=== PATIENT | female | born 1940 | race Two or more races ===

== ENCOUNTER 2018-06-29 06:38 | Inpatient (IN) | payer OTHER ==
--- NOTE | 2018-06-29 07:14 | PDOC ---
History of Present Illness <GrahamSebas - Last Filed: 06/29/18 09:38> - History of Present Illness Initial Comments: The pt is an 78F w/ a history of a-fib, HTN, previous CVA w/ residual BLE decreased sensation to light touch (R>L) and L upper face hemiparesis who presents for evaluation for concern of new stroke. The pt went to sleep last night at 2030 and woke at 0300 today w/ BLE weakness and slurring of speech as well as subjective difficulty of forming/finding words. Pt endorses fall x2 this AM 2/2 weakness. Denies hitting her head or LOC. Denies recent illness, fevers/chills, chest pain, trouble breathing, abdominal pain, N/V/C/D Endorses chronic frequency + chronic R eye blindness 06/29/18 09:13 <Yousuf Chavez - Last Filed: 06/29/18 15:41> - General Chief Complaint: Chest Pain Stated Complaint: CHEST PAIN, HYPERTENSION NIH Stroke Scale - Last Known Well Date/Time & Onset Date Last Known Well: 06/28/18 Time Last Known Well: 20:00 - Initial Evaluation Level of consciousness: Alert Ask patient the month and their age: Answers both correctly Ask patient to open & close eyes; make fist and let go: Obeys both correctly Best gaze (horizontal eye movement): Normal Visual field testing: No visual field loss Facial paresis (Show teeth/raise eyebrows/close eyes tight): Normal symmetrical movement Motor Function: Left Arm: Normal Motor Function: Right Arm: Normal (extends arm 90 (or 45) degrees for 10 seconds without drift Motor Function: Left Leg: Normal (extends leg 30 degrees for 5 seconds without drift) Motor Function: Right Leg: Normal (extends leg 30 degrees for 5 seconds without drift) Limb Ataxia: No ataxia Sensory(Use pinprick test arms,legs,trunk,face/side to side): Mild to moderate decrease in sensation Best language (Describe picture, name items, read sentences): Mild to moderate aphasia Dysarthria (read several words): Mild to moderate slurring of words Extinction and Inattention: No abnormality - Total Score NIH Stroke Scale Score: 3 <Yousuf Chavez - Last Filed: 06/29/18 15:41> tPA Exclusion checklist 3-4.5h - Thrombolytic Therapy Candidate Is patient eligible for thrombolytic therapy: No - Ineligibility reason(s) Reasons No tPA given: Outside of window - delayed arrival <GrahamSebas - Last Filed: 06/29/18 09:38> - Time Elapsed Date last known well: 06/28/18 Time last known well: 20:00 Elaspsed time: Day(s) and 19 Hour(s) and 25 Minutes - Ineligibility reason(s) Reasons No tPA given: Outside of window - delayed arrival <Yousuf Chavez - Last Filed: 06/29/18 15:41> Past History <GrahamSebas - Last Filed: 06/29/18 09:38> - Suicide/Smoking/Psychosocial Hx Smoking History: Never smoked Have you smoked in the past 12 months: No Information on smoking cessation initiated: No Hx Alcohol Use: No Drug/Substance Use Hx: No <LonnieshellyYousuf - Last Filed: 06/29/18 15:41> - Past Medical History Allergies/Adverse Reactions: Allergies Allergy/AdvReac Type Severity Reaction Status Date / Time No Known Allergies Allergy Verified 06/29/18 07:00 Home Medications: Ambulatory Orders Amlodipine Besylate 10 mg PO DAILY 06/29/18 Atorvastatin Calcium 10 mg PO DAILY 06/29/18 Celecoxib [Celebrex -] 200 mg PO DAILY 06/29/18 Furosemide [Lasix -] 40 mg PO DAILY 06/29/18 Glimepiride 1 mg PO DAILY 06/29/18 Lisinopril [Prinivil -] 40 mg PO DAILY 06/29/18 Loratadine [Claritin -] 10 mg PO DAILY 06/29/18 Magnesium Oxide [Mag-Oxide] 400 mg PO DAILY 06/29/18 Metoprolol Succinate 100 mg PO DAILY 06/29/18 Sertraline HCl [Zoloft -] 50 mg PO DAILY 06/29/18 Review of Systems - Review of Systems Able to Perform ROS?: Yes Comments:: GENERAL/CONSTITUTIONAL: No fever or chills. HEAD, EYES, EARS, NOSE AND THROAT: No acute change in vision. No ear pain or discharge. No sore throat CARDIOVASCULAR: No chest pain or shortness of breath RESPIRATORY: Denies cough, hemoptysis GASTROINTESTINAL: No nausea, vomiting, diarrhea or constipation GENITOURINARY: No dysuria, frequency, or change in urination MUSCULOSKELETAL: No joint or muscle swelling or pain. No neck or back pain SKIN: No rash NEUROLOGIC: No vertigo, loss of consciousness, or change in strength/sensation ENDOCRINE: No increased thirst. No abnormal weight change HEMATOLOGIC/LYMPHATIC: No anemia, easy bleeding, or history of blood clots ALLERGIC/IMMUNOLOGIC: No hives or skin allergy 06/29/18 07:12 Is the patient limited Dutch proficient: No <Yousuf Chavez - Last Filed: 06/29/18 15:41> *Physical Exam - Vital Signs Last Vital Signs Temp Pulse Resp BP Pulse Ox 98.4 F 76 18 168/95 98 06/29/18 06:38 06/29/18 06:38 06/29/18 06:38 06/29/18 06:38 06/29/18 07:16 <Sebas Stevenson - Last Filed: 06/29/18 09:38> - Vital Signs Last Vital Signs Temp Pulse Resp BP Pulse Ox 98.4 F 76 18 168/95 100 06/29/18 06:38 06/29/18 06:38 06/29/18 06:38 06/29/18 06:38 06/29/18 06:38 - Physical Exam Comments: GENERAL: Awake, alert, and oriented to person/place/time, in no acute distress HEAD: No signs of trauma, normocephalic, atraumatic EYES: R eye blindness (chronic), no L eye deviation, no conjuctivitis ENT: Hearing grossly normal, nares patent, oropharynx clear without exudates. Moist mucosa LUNGS: No distress, speaks full sentences, clear to auscultation bilaterally HEART: Regular rate and irregularly irregular rhythm, systolic murmur appreciated, peripheral pulses normal and equal bilaterally ABDOMEN: Soft, protuberant, nontender, normoactive bowel sounds. No guarding, no rebound EXTREMITIES: BLE 4+ pitting edema to knees NEUROLOGICAL: R eyebrow higher than left (baseline), slurred speech, difficulty finding words; BUE strength 5/5; BLE strength 5/5; Decreased sensation to light tough throughout BLE (R>L) SKIN: RLE ecchymosis 06/29/18 07:14 <Yousuf Chavez - Last Filed: 06/29/18 15:41> Moderate Sedation - Procedure Monitoring Vital Signs: Procedure Monitoring Vital Signs Temperature 98.4 F 06/29/18 06:38 Pulse Rate 76 06/29/18 06:38 Respiratory Rate 18 06/29/18 06:38 Blood Pressure 168/95 06/29/18 06:38 O2 Sat by Pulse Oximetry (%) 98 06/29/18 07:16 <Sebas Stevenson - Last Filed: 06/29/18 09:38> - Procedure Monitoring Vital Signs: Procedure Monitoring Vital Signs Temperature 98.4 F 06/29/18 06:38 Pulse Rate 76 06/29/18 06:38 Respiratory Rate 18 06/29/18 06:38 Blood Pressure 168/95 06/29/18 06:38 O2 Sat by Pulse Oximetry (%) 100 06/29/18 06:38 <Yousuf Chavez - Last Filed: 06/29/18 15:41> ED Treatment Course - LABORATORY CBC & Chemistry Diagram: 06/29/18 08:20 06/29/18 08:20 - ADDITIONAL ORDERS Additional order review: Laboratory Results 06/29/18 06/29/18 06/29/18 08:20 08:20 08:20 PT with INR 11.10 INR 0.94 PTT (Actin FS) Sodium 142 Potassium 3.8 Chloride 108 H Carbon Dioxide 26 Anion Gap 8 BUN 35 H Creatinine 1.5 H Creat Clearance w eGFR 33.41 Random Glucose 132 H Calcium 7.8 L Magnesium Total Bilirubin 0.2 AST 31 ALT 36 Alkaline Phosphatase 92 Creatine Kinase Troponin I B-Natriuretic Peptide Total Protein 6.4 Albumin 2.5 L Triglycerides Cholesterol Total LDL Cholesterol HDL Cholesterol Urine Color Yellow Urine Appearance Clear Urine pH 6.0 Ur Specific [place] 1.018 Urine Protein 3+ H Urine Glucose (UA) 3+ H Urine Ketones Negative Urine Blood Negative Urine Nitrite Negative Urine Bilirubin Negative Urine Urobilinogen Negative Ur Leukocyte Esterase Negative Urine WBC (Auto) 1 Urine RBC (Auto) None Ur Epithelial Cells Rare Hyaline Casts 9 06/29/18 06/29/18 08:20 08:20 PT with INR INR PTT (Actin FS) 33.9 Sodium Potassium Chloride Carbon Dioxide Anion Gap BUN Creatinine Creat Clearance w eGFR Random Glucose Calcium Magnesium 2.5 H Total Bilirubin AST ALT Alkaline Phosphatase Creatine Kinase 123 Troponin I 0.02 B-Natriuretic Peptide 4787.2 H Total Protein Albumin Triglycerides 245 H Cholesterol 305 H Total LDL Cholesterol 202 H HDL Cholesterol 62 H Urine Color Urine Appearance Urine pH Ur Specific [place] Urine Protein Urine Glucose (UA) Urine Ketones Urine Blood Urine Nitrite Urine Bilirubin Urine Urobilinogen Ur Leukocyte Esterase Urine WBC (Auto) Urine RBC (Auto) Ur Epithelial Cells Hyaline Casts 06/29/18 08:20 RBC 3.54 L MCV 95.4 MCHC 33.9 RDW 14.5 MPV 9.4 Neutrophils % 78.3 Lymphocytes % 11.7 Monocytes % 7.0 Eosinophils % 1.7 Basophils % 1.3 <Sebas Stevenson - Last Filed: 06/29/18 09:38> - LABORATORY CBC & Chemistry Diagram: 06/29/18 08:20 06/29/18 08:20 <Yousuf Chavez - Last Filed: 06/29/18 15:41> Medical Decision Making - Medical Decision Making The pt is a 78F w/ a history of CVA w/ residual deficits, HTN, a-fib who presents for evaluation of stroke ED Course Labs sent CT head w/o evidence of acute hemorrhage Pt outside of window for TPA Neurology consulted, will give ASA. Pt on statin at home No leukocytosis No anemia UA w/o evidence of UTI BNP elevated Lytes wnl Plan for admission for stroke Pt signed out to Dr. Bravo <Yousuf Chavez - Last Filed: 06/29/18 15:41> *DC/Admit/Observation/Transfer <Sebas Stevenson - Last Filed: 06/29/18 09:38> - Discharge Dispostion Decision to Admit order: Yes <Yousuf Chavez - Last Filed: 06/29/18 15:41> Diagnosis at time of Disposition: Stroke Qualifiers: CVA mechanism: unspecified Qualified Code(s): I63.9 - Cerebral infarction, unspecified - Discharge Dispostion Condition at time of disposition: Fair
[2018-06-29] MEDS ORDERED: SODIUM CHLORIDE 1,000 ML IV SCH ×3 (08:15→22:00)
[2018-06-29 08:45] LABS: URINE APPEARANCE CLEAR; URINE BILIRUBIN NEGATIVE (<2.0 mg/dL); URINE COLOR YELLOW; URINE GLUCOSE (UA) 3+ (NEGATIVE); URINE KETONE NEGATIVE (NEGATIVE); URINE LEUK ESTERASE NEGATIVE (NEGATIVE); URINE NITRITE NEGATIVE (NEGATIVE); URINE PROTEIN 3+ (NEGATIVE); URINE UROBILINOGEN NEGATIVE mg/dL (0.2-1.0)
[2018-06-29 08:58] LABS: BASO % 1.3 % (0-2.0); EOS % 1.7 % (0-4.5); HEMATOCRIT 33.8 % (32.4-45.2); HEMOGLOBIN 11.5 GM/dL (10.7-15.3); LYMPH % 11.7 % (8-40); MCH 32.3 pg (25.7-33.7); MCHC 33.9 g/dl (32.0-36.0); MEAN CELL VOLUME 95.4 fl (80-96); MEAN PLT VOLUME 9.4 fl (7.5-11.1); NEUT % 78.3 % (42.8-82.8); PLATELET COUNT 263 K/MM3 (134-434); RBC 3.54 M/mm3 (3.60-5.2); RDW 14.5 % (11.6-15.6); WHITE BLOOD COUNT 8.5 K/mm3 (4.0-10.0)
[2018-06-29 09:05] LABS: EPI CELLS RARE /HPF (FEW); URINE HYALINE CAST 9 /lpf
[2018-06-29 09:09] LABS: ALBUMIN 2.5 g/dl (3.4-5.0); ALK PHOS 92 U/L (45-117); ANION GAP 8 MMOL/L (8-16); BILIRUBIN,TOTAL 0.2 mg/dL (0.2-1); BLOOD UREA NITROGEN 35 mg/dL (7-18); CALCIUM 7.8 mg/dL (8.5-10.1); CHLORIDE 108 mmol/L (98-107); CO2 26 mmol/L (21-32); CREATININE 1.5 mg/dL (0.55-1.3); GLUCOSE,RANDOM 132 mg/dL (74-106); INR 0.94 (0.83-1.09); POTASSIUM 3.8 mmol/L (3.5-5.1); PROTHROMBIN TIME (PATIENT) 11.1 SEC (9.7-13.0); SGOT/AST 31 U/L (15-37); SGPT/ALT 36 U/L (13-61); SODIUM 142 mmol/L (136-145); TOT PROT 6.4 g/dl (6.4-8.2)
[2018-06-29 09:11] LABS: MAGNESIUM 2.5 mg/dL (1.8-2.4); N-TERMINAL BNP 4787.2 pg/ml (5-450)
--- NOTE | 2018-06-29 09:38 | PDOC ---
Attending Attestation - Resident Resident Name: Yousuf Chavez - ED Attending Attestation I have performed the following: I have examined & evaluated the patient, The case was reviewed & discussed with the resident, I agree w/resident's findings & plan - HPI HPI: 06/29/18 09:35 78-year-old female with history of CVA presents with bilateral leg weakness and worsening slurred speech since awakening at 3 AM. Patient went to bed last night at 8:30 AM, did not awaken until 3 AM when she noted bilateral leg weakness resulting in two falls but no injuries. Denies headache, denies vision change, patient and admit to slight worsening of her baseline slurred speech, no new or worsened arm weakness, but bilateral leg weakness preventing her from standing or walking. No fevers or chills, no chest pain or difficulty breathing. - Physicial Exam PE: 06/29/18 09:36 Vital signs are normal Alert, conversant, following commands through translator/interpreter Baseline left facial weakness/nasolabial flattening, positive slurred speech Heart is regular with slight ejection murmur, lungs are clear 5 out of 5 upper extremity strength bilaterally, 5 over 5 lower extremity strength bilaterally 2+ pitting edema bilaterally with resolving right chaney bruise from a few weeks ago - Medical Decision Making 06/29/18 09:37 78-year-old female with history of CVA presents with worsened dysarthria and bilateral leg weakness/difficulty ambulating. Last known well was 8:30 PM last night, symptoms noticed at 3 AM. Patient has not candidate for thrombolysis, does not meet clinical picture for thrombectomy/large vessel occlusion. Question CVA, question metabolic versus infectious. Stroke protocol initiated CT head without acute pathology Labs are within normal limits, unknown baseline creatinine Give aspirin, admitted for further stroke Heart Score/ECG Review #1 ECG reviewed & interpreted by me at: 06:49 Compared to previous ECG there are: Previous ECG unavail 06/29/18 10:01 afib at 81, qtc 446. no acute ischemic changes
[2018-06-29] MEDS ORDERED: ASPIRIN 81 MG CHEWABLE TABLETS PO ONE (09:55)
[2018-06-29] MEDS ORDERED: ACETAMINOPHEN 325 MG TABLET (FP) ONE (09:59)
[2018-06-29] MEDS ORDERED: ASPIRIN 325 MG TABLET ONE (09:59)
[2018-06-29] MEDS ORDERED: ASPIRIN 81 MG CHEWABLE TABLETS ONE (10:05)
[2018-06-29] MEDS ORDERED: ACETAMINOPHEN 325 MG TABLET (FP) PO ONE (10:40)
[2018-06-29] MEDS ORDERED: ATORVASTATIN CA 80 MG TABLET (FP) PO ONE (11:12)
--- NOTE | 2018-06-29 11:15 | HP ---
CHIEF COMPLAINT: Slurred speech, weakness PCP: HISTORY OF PRESENT ILLNESS: The patient is a 78 year old Nepali speaking female with a PMH of CVA a year ago with left sided residual weakness, HTN, HLD, s/p colon cancer removal 2018, A/Fib. since 2018, DMII, right eye blindness that presented to the hospital complaining of slurred speech and weakness since 3 AM today. The patient states that she woke up to go to the bathroom but her legs "gave up and she fell on her bottom". She also noticed slurred speech. According to her family that was present with the patient on arrival to ED, she was in her normal health in the evening before going to bed. The patient was outside of the therapeutic window for tPA. When I saw her in ED, she was still complaining of slurred speech and swelling in lower extremities for several weeks. She denies palpitations, chest pain, SOB , hitting her head, headache, dizziness, numbness. 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 Family History: noncontributory two healthy children Allergies No Known Allergies Allergy (Verified 06/29/18 07:00) HOME MEDICATIONS: Home Medications Medication Instructions Recorded Amlodipine Besylate 10 mg PO DAILY 06/29/18 Atorvastatin Calcium 10 mg PO DAILY 06/29/18 Celecoxib [Celebrex -] 200 mg PO DAILY 06/29/18 Furosemide [Lasix -] 40 mg PO DAILY 06/29/18 Glimepiride 1 mg PO DAILY 06/29/18 Lisinopril [Prinivil -] 40 mg PO DAILY 06/29/18 Loratadine [Claritin -] 10 mg PO DAILY 06/29/18 Magnesium Oxide [Mag-Oxide] 400 mg PO DAILY 06/29/18 Metoprolol Succinate 100 mg PO DAILY 06/29/18 Sertraline HCl [Zoloft -] 50 mg PO DAILY 06/29/18 REVIEW OF SYSTEMS CONSTITUTIONAL: Absent: fever, chills, diaphoresis, malaise, loss of appetite, weight change HEENT: Absent: nasal congestion, difficulty swallowing, ear pain, eye pain, visual changes CARDIOVASCULAR: peripheral edema Absent: chest pain, syncope, palpitations, irregular heart rate, lightheadedness , RESPIRATORY: Absent: cough, shortness of breath, dyspnea with exertion, orthopnea, wheezing GASTROINTESTINAL: Absent: abdominal pain, nausea, vomiting, diarrhea, constipation, melena, hematochezia GENITOURINARY: Absent: dysuria, frequency, urgency, hesitancy, hematuria, flank pain, genital pain MUSCULOSKELETAL: Absent: myalgia, arthralgia, joint swelling, back pain, neck pain SKIN: Absent: rash, itching, pallor HEMATOLOGIC/IMMUNOLOGIC: Absent: easy bleeding, easy bruising, lymphadenopathy, frequent infections ENDOCRINE: Absent: unexplained weight gain, unexplained weight loss NEUROLOGIC: slurred speech, weakness in LEs Absent: headache, paresthesias, dizziness, seizure, mental status changes, bladder or bowel incontinence PHYSICAL EXAMINATION Vital Signs - 24 hr 06/29/18 06/29/18 06:38 07:16 Temperature 98.4 F Pulse Rate 76 Respiratory 18 Rate Blood Pressure 168/95 O2 Sat by Pulse 100 98 Oximetry (%) GENERAL: Awake, alert, and fully oriented, in no acute distress, lying in bed. HEAD: Normal with no signs of trauma. EYES: Left pupil round and reactive to light, extraocular movements intact, sclera anicteric, conjunctiva clear. No lid lag. Right eye blind. EARS, NOSE, THROAT: Oropharynx clear without exudates. Moist mucous membranes. NECK: Normal range of motion, supple without lymphadenopathy, JVD, or masses. LUNGS: Breath sounds equal, clear to auscultation bilaterally. No wheezes, and no crackles. No accessory muscle use. HEART: Irregular rate and rhythm, normal S1 and S2, systolic murmur over right, left sternal border, radiating to apex and left carotid. ABDOMEN: Soft, nontender, not distended, normoactive bowel sounds, no guarding, no rebound, no masses. MUSCULOSKELETAL: Normal range of motion at all joints. No bony deformities or tenderness. UPPER EXTREMITIES: No peripheral edema. LOWER EXTREMITIES: 2+ pulses, 2+ peripheral edema. NEUROLOGICAL: Facial droop on right side, slurred speech, motor in upper extremities: LUE 4/5, RUE 5/5, lower extremities 5/5, sensation decreased on left side, gait not observed. Follows commands. PSYCHIATRIC: Cooperative. Good eye contact. Appropriate mood and affect. SKIN: Warm, dry, normal turgor, no rashes. Laboratory Results - last 24 hr 06/29/18 06/29/18 06/29/18 08:20 08:20 08:20 WBC 8.5 RBC 3.54 L Hgb 11.5 Hct 33.8 MCV 95.4 MCH 32.3 MCHC 33.9 RDW 14.5 Plt Count 263 MPV 9.4 Absolute Neuts (auto) 6.6 Neutrophils % 78.3 Lymphocytes % 11.7 Monocytes % 7.0 Eosinophils % 1.7 Basophils % 1.3 Nucleated RBC % 0 PT with INR INR PTT (Actin FS) 33.9 Sodium Potassium Chloride Carbon Dioxide Anion Gap BUN Creatinine Creat Clearance w eGFR Random Glucose Calcium Magnesium 2.5 H Total Bilirubin AST ALT Alkaline Phosphatase Creatine Kinase 123 Troponin I 0.02 B-Natriuretic Peptide 4787.2 H Total Protein Albumin Triglycerides 245 H Cholesterol 305 H Total LDL Cholesterol 202 H HDL Cholesterol 62 H Urine Color Urine Appearance Urine pH Ur Specific [place] Urine Protein Urine Glucose (UA) Urine Ketones Urine Blood Urine Nitrite Urine Bilirubin Urine Urobilinogen Ur Leukocyte Esterase Urine WBC (Auto) Urine RBC (Auto) Ur Epithelial Cells Hyaline Casts 06/29/18 06/29/18 06/29/18 08:20 08:20 08:20 WBC RBC Hgb Hct MCV MCH MCHC RDW Plt Count MPV Absolute Neuts (auto) Neutrophils % Lymphocytes % Monocytes % Eosinophils % Basophils % Nucleated RBC % PT with INR 11.10 INR 0.94 PTT (Actin FS) Sodium 142 Potassium 3.8 Chloride 108 H Carbon Dioxide 26 Anion Gap 8 BUN 35 H Creatinine 1.5 H Creat Clearance w eGFR 33.41 Random Glucose 132 H Calcium 7.8 L Magnesium Total Bilirubin 0.2 AST 31 ALT 36 Alkaline Phosphatase 92 Creatine Kinase Troponin I B-Natriuretic Peptide Total Protein 6.4 Albumin 2.5 L Triglycerides Cholesterol Total LDL Cholesterol HDL Cholesterol Urine Color Yellow Urine Appearance Clear Urine pH 6.0 Ur Specific [place] 1.018 Urine Protein 3+ H Urine Glucose (UA) 3+ H Urine Ketones Negative Urine Blood Negative Urine Nitrite Negative Urine Bilirubin Negative Urine Urobilinogen Negative Ur Leukocyte Esterase Negative Urine WBC (Auto) 1 Urine RBC (Auto) None Ur Epithelial Cells Rare Hyaline Casts 9 ASSESSMENT/PLAN: The patient is a 78 year old Nepali speaking female with a PMH of CVA a year ago with left sided residual weakness, HTN, HLD, s/p colon cancer removal 2018, A/Fib. since 2018, right eye blindness that presented to the hospital complaining of slurred speech and weakness, admitted to r/o CVA. r/o CVA: -the patient presented with symptoms suggestive of stroke, possible TIA -first CT head negative, we will follow up neurologist recommendations, obtain MRI/MRA of the brain tonight -stroke protocol ordered -cardiac monitoring -neuro checks -Carotid doppler -ECHO -Lipitor 80 mg Po -ASA 325 mg dose given -speech and swallow evaluation, NPO for now, continue NS at 75 cc/hr for hydration A.Fib: -according to the patient it started after she had colon cancer removed last year in [facility] -she is not on AC -will obtain ECHO -cardiology consulted r/o CKD: -unknown baseline of Cr, today 1.5 -will obtain renal US, urine studies -avoid nephrotoxins Hyperlipidemia: -continue Lipitor 80 mg HTN: -hold BP medications for now, permissive hypertension after possible stroke DMII: -ISS ACHS -BGM ACHS -HgA1C DVT PPX: -cont SCDs -Heparin sq F/E/N: NS at 75 cc/hrno changes/NPO Dispo: stroke unit Problem List - Problem (1) CVA (cerebral vascular accident) Code(s): I63.9 - CEREBRAL INFARCTION, UNSPECIFIED (2) Hypertension Code(s): I10 - ESSENTIAL (PRIMARY) HYPERTENSION (3) Dyslipidemia Code(s): E78.5 - HYPERLIPIDEMIA, UNSPECIFIED (4) Atrial fibrillation Code(s): I48.91 - UNSPECIFIED ATRIAL FIBRILLATION Visit type - Emergency Visit Emergency Visit: Yes ED Registration Date: 06/29/18 Care time: The patient presented to the Emergency Department on the above date and was hospitalized for further evaluation of their emergent condition. - New Patient This patient is new to me today: Yes Date on this admission: 06/29/18 - Critical Care Critical Care patient: No
--- NOTE | 2018-06-29 13:12 | EKG ---
Test Reason : Blood Pressure : / mmHG Vent. Rate : 083 BPM Atrial Rate : 067 BPM P-R Int : 000 ms QRS Dur : 082 ms QT Int : 380 ms P-R-T Axes : 000 -09 074 degrees QTc Int : 446 ms ATRIAL FIBRILLATION NONSPECIFIC T WAVE ABNORMALITY ABNORMAL ECG NO PREVIOUS ECGS AVAILABLE Confirmed by MD JAMIL, WILL ([id number]) on 06/29/2018 1:11:42 PM Referred By: Confirmed By:WILL NEGRON MD
--- NOTE | 2018-06-29 14:07 | CON.NEURO ---
Consult - Alcohol/Substance Use Hx Alcohol Use: No - Smoking History Smoking history: Never smoked Have you smoked in the past 12 months: No Home Medications - Allergies Allergies/Adverse Reactions: Allergies Allergy/AdvReac Type Severity Reaction Status Date / Time No Known Allergies Allergy Verified 06/29/18 07:00 - Home Medications Home Medications: Ambulatory Orders Amlodipine Besylate 10 mg PO DAILY 06/29/18 Atorvastatin Calcium 10 mg PO DAILY 06/29/18 Celecoxib [Celebrex -] 200 mg PO DAILY 06/29/18 Furosemide [Lasix -] 40 mg PO DAILY 06/29/18 Glimepiride 1 mg PO DAILY 06/29/18 Lisinopril [Prinivil -] 40 mg PO DAILY 06/29/18 Loratadine [Claritin -] 10 mg PO DAILY 06/29/18 Magnesium Oxide [Mag-Oxide] 400 mg PO DAILY 06/29/18 Metoprolol Succinate 100 mg PO DAILY 06/29/18 Sertraline HCl [Zoloft -] 50 mg PO DAILY 06/29/18 Physical Exam-Neuro Vital Signs: Vital Signs Temperature 98.4 F 06/29/18 06:38 Pulse Rate 76 06/29/18 06:38 Respiratory Rate 18 06/29/18 06:38 Blood Pressure 168/95 06/29/18 06:38 O2 Sat by Pulse Oximetry (%) 98 06/29/18 07:16 Labs: CBC, BMP 06/29/18 08:20 06/29/18 08:20 INR, PTT INR 0.94 (0.83-1.09) 06/29/18 08:20 Assessment/Plan CC Slurred speech and weakness since 3 am on june HPI 78 year old female of [place] decent ( [place] speaking) , she has history of Stroke with left hp , htn,hld,colon cancer, atrial fibrillation, DM olivia right eye blindness. She came to hospital with leg being weak and she fell . Patient noticed to have slurred of speech. Patient was not in tpa window and her ct head showed no acute findings. Her carotid ultrasound is normal. History was taken through [place] official court interpreter . 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 two healthy children Allergies No Known Allergies Allergy (Verified 06/29/18 07:00) HOME MEDICATIONS: Home Medications Medication Instructions Recorded Amlodipine Besylate 10 mg PO DAILY 06/29/18 Atorvastatin Calcium 10 mg PO DAILY 06/29/18 Celecoxib [Celebrex -] 200 mg PO DAILY 06/29/18 Furosemide [Lasix -] 40 mg PO DAILY 06/29/18 Glimepiride 1 mg PO DAILY 06/29/18 Lisinopril [Prinivil -] 40 mg PO DAILY 06/29/18 Loratadine [Claritin -] 10 mg PO DAILY 06/29/18 Magnesium Oxide [Mag-Oxide] 400 mg PO DAILY 06/29/18 Metoprolol Succinate 100 mg PO DAILY 06/29/18 Sertraline HCl [Zoloft -] 50 mg PO DAILY 06/29/18 NEUROLOGICAL EXAMINATION Alert follow command, speech is severely dysarthric, she is able to follow command and elizabeth to answer question and understand eomi, left sided facial paralsysi. no pronator drift and no leg weakness identified sensaiton is normal bilateral ct head unremarkable carotid ultrasound is noraml Assessent/Plan 78 year old female hisotyr of DM,Colon cancer,atrial fibrillation ,HTN,HLD . She presented with worsenign of weakness and slurring of speech and her symptoms seems to have improved. she has history of old stroke with residual weakness Plan: Start aspirin and lipitor 80 mg once a day outside tpa window and new focal neuro syptoms seems to be resolved and she is back to baseline PT,SPEECH and DVT prohylaxis - carotid ultrasound result appreciated echo can be obtained and cardiology consult for atrial fibrillation - either mri of brain or repeat ct scan can be obtained, no large stroke, she can be given anticoagulation - stroke education Thanking you so much Arcenio Addison MD
--- NOTE | 2018-06-29 16:04 | PN ---
Teaching Attending Note Name of Resident: Radha Laws ATTENDING PHYSICIAN STATEMENT I saw and evaluated the patient. I reviewed the resident's note and discussed the case with the resident. I agree with the resident's findings and plan as documented. SUBJECTIVE: Feels okay, still complains of unsteady gait and slurring of speech. No headache/visual disturbance/focal limb numbness or weakness. No nausea/vomiting. OBJECTIVE: Afebrile, Hypertensive. Last Vital Signs Temp Pulse Resp BP Pulse Ox 98.2 F 80 18 170/108 H 96 06/29/18 14:23 06/29/18 14:23 06/29/18 14:23 06/29/18 14:23 06/29/18 14:23 HEENT - Atraumatic. Heart - S1, S2, SM, irregular Lungs - clear to auscultation. Abdomen - Soft, non-tender. Bowel Sounds normal. Extremities - bilateral LE edema to knees. No calf tenderness Neuro - AAO x 3. Mild decrease in power LUE versus RUE. Mild decreased power bilateral LEs. EOMI. L facial droop. Laboratory Results - last 24 hr 06/29/18 06/29/18 06/29/18 08:20 08:20 08:20 WBC 8.5 RBC 3.54 L Hgb 11.5 Hct 33.8 MCV 95.4 MCH 32.3 MCHC 33.9 RDW 14.5 Plt Count 263 MPV 9.4 Absolute Neuts (auto) 6.6 Neutrophils % 78.3 Lymphocytes % 11.7 Monocytes % 7.0 Eosinophils % 1.7 Basophils % 1.3 Nucleated RBC % 0 PT with INR INR PTT (Actin FS) 33.9 Sodium Potassium Chloride Carbon Dioxide Anion Gap BUN Creatinine Creat Clearance w eGFR Random Glucose Calcium Magnesium 2.5 H Total Bilirubin AST ALT Alkaline Phosphatase Creatine Kinase 123 Troponin I 0.02 B-Natriuretic Peptide 4787.2 H Total Protein Albumin Triglycerides 245 H Cholesterol 305 H Total LDL Cholesterol 202 H HDL Cholesterol 62 H Urine Color Urine Appearance Urine pH Ur Specific [place] Urine Protein Urine Glucose (UA) Urine Ketones Urine Blood Urine Nitrite Urine Bilirubin Urine Urobilinogen Ur Leukocyte Esterase Urine WBC (Auto) Urine RBC (Auto) Ur Epithelial Cells Hyaline Casts Blood Type Antibody Screen 06/29/18 06/29/18 06/29/18 08:20 08:20 08:20 WBC RBC Hgb Hct MCV MCH MCHC RDW Plt Count MPV Absolute Neuts (auto) Neutrophils % Lymphocytes % Monocytes % Eosinophils % Basophils % Nucleated RBC % PT with INR 11.10 INR 0.94 PTT (Actin FS) Sodium 142 Potassium 3.8 Chloride 108 H Carbon Dioxide 26 Anion Gap 8 BUN 35 H Creatinine 1.5 H Creat Clearance w eGFR 33.41 Random Glucose 132 H Calcium 7.8 L Magnesium Total Bilirubin 0.2 AST 31 ALT 36 Alkaline Phosphatase 92 Creatine Kinase Troponin I B-Natriuretic Peptide Total Protein 6.4 Albumin 2.5 L Triglycerides Cholesterol Total LDL Cholesterol HDL Cholesterol Urine Color Yellow Urine Appearance Clear Urine pH 6.0 Ur Specific [place] 1.018 Urine Protein 3+ H Urine Glucose (UA) 3+ H Urine Ketones Negative Urine Blood Negative Urine Nitrite Negative Urine Bilirubin Negative Urine Urobilinogen Negative Ur Leukocyte Esterase Negative Urine WBC (Auto) 1 Urine RBC (Auto) None Ur Epithelial Cells Rare Hyaline Casts 9 Blood Type Antibody Screen 06/29/18 06/29/18 10:20 13:05 WBC RBC Hgb Hct MCV MCH MCHC RDW Plt Count MPV Absolute Neuts (auto) Neutrophils % Lymphocytes % Monocytes % Eosinophils % Basophils % Nucleated RBC % PT with INR INR PTT (Actin FS) Sodium Potassium Chloride Carbon Dioxide Anion Gap BUN Creatinine Creat Clearance w eGFR Random Glucose Calcium Magnesium Total Bilirubin AST ALT Alkaline Phosphatase Creatine Kinase Troponin I B-Natriuretic Peptide Total Protein Albumin Triglycerides Cholesterol Total LDL Cholesterol HDL Cholesterol Urine Color Urine Appearance Urine pH Ur Specific San[place] Urine Protein Urine Glucose (UA) Urine Ketones Urine Blood Urine Nitrite Urine Bilirubin Urine Urobilinogen Ur Leukocyte Esterase Urine WBC (Auto) Urine RBC (Auto) Ur Epithelial Cells Hyaline Casts Blood Type A POSITIVE A POSITIVE Antibody Screen Negative Current Medications Generic Name Dose Route Start Last Admin Trade Name Freq PRN Reason Stop Dose Admin Aspirin 81 mg 06/30/18 10:00 Asa - PO DAILY MIKEL Atorvastatin Calcium 80 mg 06/30/18 22:00 Lipitor - PO HS MIKEL Heparin Sodium (Porcine) 5,000 unit 06/29/18 22:00 Heparin - SQ BID MIKEL Sodium Chloride 1,000 mls @ 75 mls/hr 06/29/18 11:11 06/29/18 11:12 Normal Saline - IV 07/01/18 09:00 75 mls/hr ASDIR MIKEL Administration Insulin Aspart 1 vial 06/29/18 16:30 Novolog Vial Sliding Scale - SQ ACHS [facility] Protocol Home Medications Medication Instructions Recorded Amlodipine Besylate 10 mg PO DAILY 06/29/18 Atorvastatin Calcium 10 mg PO DAILY 06/29/18 Celecoxib [Celebrex -] 200 mg PO DAILY 06/29/18 Furosemide [Lasix -] 40 mg PO DAILY 06/29/18 Glimepiride 1 mg PO DAILY 06/29/18 Lisinopril [Prinivil -] 40 mg PO DAILY 06/29/18 Loratadine [Claritin -] 10 mg PO DAILY 06/29/18 Magnesium Oxide [Mag-Oxide] 400 mg PO DAILY 06/29/18 Metoprolol Succinate 100 mg PO DAILY 06/29/18 Sertraline HCl [Zoloft -] 50 mg PO DAILY 06/29/18 ASSESSMENT AND PLAN: 78 year old female with HTN, HLD, DM 2, prior CVA with residual L sided weakness , Colon Ca s/p excision, R eye blindness, history of arrythmia (unknown if Atrial Fibrillation), realized she had unsteady gait at 2am when she tried to go to the bathroom, requiring her 's help to mobilize. Also noted to have facial droop and slurring of speech by her . ECG in ED - Atrial Fibrillation, rate 83. 1. Acute CVA (residual Left sided weakness) CT Head - no acute intracranial findings. Loaded with Aspirin. Atrovastatin dose increased to 80mg. Continue Aspirin, Statin MRI/MRA Brain, Carotid Duplex, Echo requested. Neurochecks Neuro evaluated. NPO pending Speech eval - gentle IV hydration. PT 2. FLORI on CKD - BUN 35/Creat 1.5 (unknown baseline) Renal US requested. Gentle IV hydration Need baseline Creat from PCP office. 3. History of Atrial Fibrillation, now in AF, rate controlled. Anticoagulation deferred pending MRI Brain Cardiology consulted. 4. DM 2 - maintain on sliding scale Insulin. Glimepiride held. 5. LE Edema secondary to venous stasis versus CHF - Chronic, worse over past few weeks - pitting to knees BNP elevated at 4787. Echo requested. Normally on Lasix 40mg daily. Will need Lasix diuresis once oral intake resumes. 6. HTN - high BP - will allow for permissive HTN in first 24 hours tiffanie-CVA. Resume Metoprolol, Lisinopril, Norvasc tomorrow. DVT Px - Heparin SQ
[2018-06-29 16:46] VITALS: BMI 28.0
[2018-06-29] MEDS: INSULIN SLIDING SCALE (NOVOLOG) 1 VIAL SQ SCH ×2 (16:47→21:09)
[2018-06-29] MEDS ORDERED: HEPARIN NA (PORCINE) 5,000 UNITS/ML 1ML VIAL SQ SCH (22:00)
[2018-06-30] MEDS ORDERED: ACETAMINOPHEN 325 MG TABLET (FP) PO ONE (06:03)
[2018-06-30] MEDS: LISINOPRIL 20 MG TABLET (FP) PO SCH (06:11)
[2018-06-30] MEDS: INSULIN SLIDING SCALE (NOVOLOG) 1 VIAL SQ SCH ×4 (06:11→21:05)
[2018-06-30 07:07] LABS: INR 0.94 (0.83-1.09); PROTHROMBIN TIME (PATIENT) 11.1 SEC (9.7-13.0)
[2018-06-30 07:10] LABS: ACTIVATED PTT 34.5 SECONDS (25.2-36.5)
[2018-06-30 07:28] LABS: ALBUMIN 2.2 g/dl (3.4-5.0); ALK PHOS 89 U/L (45-117); ANION GAP 7 MMOL/L (8-16); BILIRUBIN,TOTAL 0.3 mg/dL (0.2-1); BLOOD UREA NITROGEN 28 mg/dL (7-18); CALCIUM 7.7 mg/dL (8.5-10.1); CHLORIDE 108 mmol/L (98-107); CO2 27 mmol/L (21-32); CREATININE 1.5 mg/dL (0.55-1.3); GLUCOSE,RANDOM 140 mg/dL (74-106); MAGNESIUM 2.3 mg/dL (1.8-2.4); PHOSPHOROUS 3.4 mg/dL (2.5-4.9); POTASSIUM 3.6 mmol/L (3.5-5.1); SGOT/AST 24 U/L (15-37); SGPT/ALT 26 U/L (13-61); SODIUM 142 mmol/L (136-145); TOT PROT 5.9 g/dl (6.4-8.2)
[2018-06-30] MEDS ORDERED: HEPARIN NA (PORCINE) 5,000 UNITS/ML 1ML VIAL IVPUSH PRN ×2 (07:37)
[2018-06-30] MEDS: HEPARIN SOD,PORK IN 0.45% NACL 25,000 UNITS/500 ML INFUS.BAG IVPB SCH (08:21)
--- NOTE | 2018-06-30 08:56 | CON.CARD ---
Consult Consult Specialty:: Cardiology for Ashkan Referred by:: Dr. Nelson Reason for Consultation:: CVA and AF - Alcohol/Substance Use Hx Alcohol Use: No - Smoking History Smoking history: Never smoked Have you smoked in the past 12 months: No Home Medications - Allergies Allergies/Adverse Reactions: Allergies Allergy/AdvReac Type Severity Reaction Status Date / Time No Known Allergies Allergy Verified 06/29/18 07:00 - Home Medications Home Medications: Ambulatory Orders Amlodipine Besylate 10 mg PO DAILY 06/29/18 Atorvastatin Calcium 10 mg PO DAILY 06/29/18 Celecoxib [Celebrex -] 200 mg PO DAILY 06/29/18 Furosemide [Lasix -] 40 mg PO DAILY 06/29/18 Glimepiride 1 mg PO DAILY 06/29/18 Lisinopril [Prinivil -] 40 mg PO DAILY 06/29/18 Loratadine [Claritin -] 10 mg PO DAILY 06/29/18 Magnesium Oxide [Mag-Oxide] 400 mg PO DAILY 06/29/18 Metoprolol Succinate 100 mg PO DAILY 06/29/18 Sertraline HCl [Zoloft -] 50 mg PO DAILY 06/29/18 Vital Signs: Vital Signs Temperature 97.0 F L 06/30/18 06:00 Pulse Rate 90 06/30/18 06:00 Respiratory Rate 18 06/30/18 06:00 Blood Pressure 210/88 H 06/30/18 06:00 O2 Sat by Pulse Oximetry (%) 93 L 06/29/18 21:00 - Other Data Labs, Other Data: CBC, BMP 06/29/18 08:20 06/30/18 06:30 INR, PTT INR 0.94 (0.83-1.09) 06/30/18 06:30 Troponin, BNP 06/29/18 08:20 Troponin I 0.02 B-Natriuretic Peptide 4787.2 H Troponin, BNP 06/29/18 08:20 Troponin I 0.02 B-Natriuretic Peptide 4787.2 H Laboratory Tests 06/29/18 06/30/18 06/30/18 08:20 06:30 06:30 WBC 8.5 Hgb 11.5 Plt Count 263 INR 0.94 PTT (Actin FS) 34.5 Sodium 142 Potassium 3.6 BUN 28 H Creatinine 1.5 H AF 83bpm, no acute ST changes
--- NOTE | 2018-06-30 09:03 | PN ---
Progress Note (short form) - Note Progress Note: Patient is follow for Cardiology by Dr. Ackerman. She is currently stable in no distress. Dr. Ackerman service informed of routine consult.
[2018-06-30] MEDS: SERTRALINE HCL 50 MG TABLET (FP) PO SCH (09:11)
[2018-06-30] MEDS: MAGNESIUM OXIDE 400 MG TABLET (FP) PO SCH (09:11)
[2018-06-30] MEDS ORDERED: amLODIPine BESYLATE 10 MG TABLET (FP) PO SCH (10:00)
[2018-06-30] MEDS ORDERED: ASPIRIN 81 MG CHEWABLE TABLETS PO SCH (10:00)
--- NOTE | 2018-06-30 10:13 | CON.CARD ---
Consult Consult Specialty:: Cardiology Referred by:: Hospitalist Reason for Consultation:: Cardiac evaluation - History of Present Illness Chief Complaint: Weakness and slurred speech History of Present Illness: Patient is an 78 year old Faro[place] female with underlying history of HTN, hypercholesterolemia, history of colon CA s/p resection, unknown regarding history of AF (since she had been closely followed by oil and gas field technician affiliated with [facility], but not known to have AF and was not on anticoagulation), type 2 DM who presents with slurred speech and weakness having difficulty standing and ambulating. This happened last night at 3 AM. She was brought in for further evaluation. She denies chest pain, SOB or palpitations. She denies paroxysmal nocturnal dyspnea or orthopnea. She denies fever or chills. She denies nausea, vomiting, diarrhea or abdominal pain. She denies headache or lightheadedness. ECG revealed atrial fibrillation with variable ventricular response. Head CT was unremarkable. Carotid Doppler revealed mild atherosclerotic plaques but hemodynamically no significant stenosis. Brain MRI revealed nonhemorrhagic infarct in cortex, subcortical white matter, right frontal, parietal and temporal region. Since then she has recovered all her function and currently is able to speak coherently. She states that she has had shingles after the colon resection and believes that she may have had a stroke at that time resulting in a little facial droop. 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 Cardio/Vascular: Yes: HTN, Hyperlipdemia Gastrointestinal: Yes: Cancer (Colon) Endocrine: Yes: Diabetes Mellitus - Past Surgical History Past Surgical History: Yes: Colectomy - Alcohol/Substance Use Hx Alcohol Use: No History of Substance Use: reports: None - Smoking History Smoking history: Never smoked Have you smoked in the past 12 months: No Home Medications - Allergies Allergies/Adverse Reactions: Allergies Allergy/AdvReac Type Severity Reaction Status Date / Time No Known Allergies Allergy Verified 06/29/18 07:00 - Home Medications Home Medications: Ambulatory Orders Amlodipine Besylate 10 mg PO DAILY 06/29/18 Atorvastatin Calcium 10 mg PO DAILY 06/29/18 Celecoxib [Celebrex -] 200 mg PO DAILY 06/29/18 Furosemide [Lasix -] 40 mg PO DAILY 06/29/18 Glimepiride 1 mg PO DAILY 06/29/18 Lisinopril [Prinivil -] 40 mg PO DAILY 06/29/18 Loratadine [Claritin -] 10 mg PO DAILY 06/29/18 Magnesium Oxide [Mag-Oxide] 400 mg PO DAILY 06/29/18 Metoprolol Succinate 100 mg PO DAILY 06/29/18 Sertraline HCl [Zoloft -] 50 mg PO DAILY 06/29/18 Review of Systems - Review of Systems Constitutional: denies: Chills, Fever Cardiovascular: denies: Chest Pain, Palpitations, Shortness of Breath Respiratory: denies: Cough, Hemoptysis, Orthopnea, PND, SOB, SOB on Exertion, Wheezing Gastrointestinal: denies: Abdominal Pain, Constipation, Diarrhea, Melena, Nausea , Rectal Bleeding, Vomiting Musculoskeletal: denies: Back Pain Neurological: denies: Dizziness, Headache, Seizure, Syncope Vital Signs: Vital Signs Temperature 98.3 F 06/30/18 08:00 Pulse Rate 96 H 06/30/18 08:00 Respiratory Rate 18 06/30/18 08:00 Blood Pressure 199/103 H 06/30/18 08:00 O2 Sat by Pulse Oximetry (%) 93 L 06/29/18 21:00 Eyes: Yes: PERRL HENT: Yes: Atraumatic Neck: Yes: Supple Respiratory: Yes: CTA Bilaterally Gastrointestinal: Yes: Normal Bowel Sounds, Soft. No: Tenderness Cardiovascular: Yes: Pulse Irregular JVD: No PMI: Non-Displaced Heart Sounds: Yes: S1, S2. No: Gallop Murmur: Yes: Systolic Murmur, Grade 2 Edema: Yes Edema: LLE: 1+, RLE: 1+ - Other Data Labs, Other Data: CBC, BMP 06/29/18 08:20 06/30/18 06:30 INR, PTT INR 0.94 (0.83-1.09) 06/30/18 06:30 Laboratory Results - last 24 hr 06/30/18 06/30/18 06/30/18 06:30 06:30 06:30 PT with INR 11.10 INR 0.94 PTT (Actin FS) 34.5 Sodium 142 Potassium 3.6 Chloride 108 H Carbon Dioxide 27 Anion Gap 7 L BUN 28 H Creatinine 1.5 H Creat Clearance w eGFR 33.41 POC Glucometer Random Glucose 140 H Hemoglobin A1c % 7.6 H Calcium 7.7 L Phosphorus 3.4 Magnesium 2.3 Total Bilirubin 0.3 AST 24 ALT 26 Alkaline Phosphatase 89 Total Protein 5.9 L Albumin 2.2 L Ur Random Sodium Urine Creatinine Atrial fibrillation with nonspecific T abnormality Echo: Pending Imaging - Results Chest X-ray: Report Reviewed (Large heart) Cat Scan: Report Reviewed (Head CT) Ultrasound: Report Reviewed (Carotid Doppler) MRI: Report Reviewed (Brain MRI) EKG: Report Reviewed Problem List - Problems (1) Diabetes mellitus Code(s): E11.9 - TYPE 2 DIABETES MELLITUS WITHOUT COMPLICATIONS (2) Atrial fibrillation Code(s): I48.91 - UNSPECIFIED ATRIAL FIBRILLATION Qualifiers: Atrial fibrillation type: paroxysmal Qualified Code(s): I48.0 - Paroxysmal atrial fibrillation (3) CVA (cerebral vascular accident) Code(s): I63.9 - CEREBRAL INFARCTION, UNSPECIFIED (4) Dyslipidemia Code(s): E78.5 - HYPERLIPIDEMIA, UNSPECIFIED (5) Hypertension Code(s): I10 - ESSENTIAL (PRIMARY) HYPERTENSION Qualifiers: Hypertension type: essential hypertension Qualified Code(s): I10 - Essential (primary) hypertension Assessment/Plan 1. Clinical presentation c/w CVA likely an embolic source due to AF 2. AF ? new onset with variable HR ([id number] score of 8) currently on Heparin drip 3. HTN 4. Hypercholesterolemia 5. Type 2 DM PLAN: 1. Continue Metoprolol and uptitrate. Patient was given Labetalol 200 mg once dose this AM 2. Continue Prinivil and Amlodipine for added blood pressure control 3. Statin therapy 4. Continue Heparin drip. Start DOAC such as Eliquis 2.5 mg BID (age>80, Cr>1.5) 5. Echocardiography to assess LV/RV and valvular function 6. Check prior records from the office 7. Rate control vs. rhythm control treatment Further plans are to follow Zurdo Ackerman MD
[2018-06-30] MEDS ORDERED: LABETALOL HCL 200 MG TABLET (FP) PO ONE (10:30)
--- NOTE | 2018-06-30 10:52 | PN ---
Progress Note (short form) - Note Progress Note: 78 Year old female , tamazight speaking. Inital presentation was Slurred speech and weakness since 3 am on june She has history of Stroke with left Hemiparesis , htn,hld,colon cancer, DM olivia right eye blindness. As per analysis internship, she did not have history of Atrial fibrillation and she is diagnosed with new onset atrial fibrillation. She came to hospital with leg being weak and she fell . Patient noticed to have slurred of speech. Patient was not in tpa window and her ct head showed no acute findings. Her carotid ultrasound is normal. Patinet has mri of brain and showed right mca distributioin lacunar stroke NEUROLOGICAL EXAMINATION Alert follow command, she is walking and feeling much better. She is able to talk in limited [place] and she feels she is back to normal self. she is able to follow command and elizabeth to answer question and understand eomi, left sided facial paralysis, no pronator drift and no leg weakness identified sensaiton is normal bilateral ct head unremarkable carotid ultrasound is noraml mri of brain showed right mca lacunar stroke Assessent/Plan 78 year old female hisotyr of DM,Colon cancer,HTN,HLD . She presented with worsenign of weakness and slurring of speech and her symptoms seems almost resolved. She is found to have acute stroke on mri of brain Plan: continue aspirin and lipitor 80 mg once a day -she was started on iv heparin by primary team, and she has no new neuro symptoms. Spoke to analysis internship ( Dr MCALLISTER) , She can be started on anticoagulation as she has small stroke PT,SPEECH and DVT prohylaxis - cardiology note appreciated -stroke education Thanking you so much Arcenio Addison MD
--- NOTE | 2018-06-30 11:39 | PN ---
Progress Note (short form) - Note Progress Note: SUBJECTIVE: Feeling better - improvement in speech and tongue heaviness. No headache/visual disturbance/new focal limb numbness or weakness. No nausea/ vomiting. OBJECTIVE: Afebrile, Hypertensive. Last Vital Signs Temp Pulse Resp BP Pulse Ox 98.3 F 101 H 18 210/115 H 95 06/30/18 08:00 06/30/18 10:00 06/30/18 10:00 06/30/18 10:00 06/30/18 09:00 Heart - S1, S2, SM, irregular Lungs - clear to auscultation. Abdomen - Soft, non-tender. Bowel Sounds normal. Extremities - bilateral LE edema. No calf tenderness Neuro - AAO x 3. Mild decrease in power LUE versus RUE. L facial droop improving. Dysarthria improving. Laboratory Results - last 24 hr 06/29/18 06/29/18 06/29/18 10:20 13:05 16:21 PT with INR INR PTT (Actin FS) Sodium Potassium Chloride Carbon Dioxide Anion Gap BUN Creatinine Creat Clearance w eGFR POC Glucometer 194 Random Glucose Hemoglobin A1c % Calcium Phosphorus Magnesium Total Bilirubin AST ALT Alkaline Phosphatase Total Protein Albumin Ur Random Sodium Urine Creatinine Blood Type A POSITIVE A POSITIVE Antibody Screen Negative 06/29/18 06/30/18 06/30/18 20:35 05:00 05:00 PT with INR INR PTT (Actin FS) Sodium Potassium Chloride Carbon Dioxide Anion Gap BUN Creatinine Creat Clearance w eGFR POC Glucometer 284 Random Glucose Hemoglobin A1c % Calcium Phosphorus Magnesium Total Bilirubin AST ALT Alkaline Phosphatase Total Protein Albumin Ur Random Sodium 111 Urine Creatinine 30.0 Blood Type Antibody Screen 06/30/18 06/30/18 06/30/18 05:52 06:30 06:30 PT with INR 11.10 INR 0.94 PTT (Actin FS) 34.5 Sodium 142 Potassium 3.6 Chloride 108 H Carbon Dioxide 27 Anion Gap 7 L BUN 28 H Creatinine 1.5 H Creat Clearance w eGFR 33.41 POC Glucometer 152 Random Glucose 140 H Hemoglobin A1c % Calcium 7.7 L Phosphorus 3.4 Magnesium 2.3 Total Bilirubin 0.3 AST 24 ALT 26 Alkaline Phosphatase 89 Total Protein 5.9 L Albumin 2.2 L Ur Random Sodium Urine Creatinine Blood Type Antibody Screen 06/30/18 06:30 PT with INR INR PTT (Actin FS) Sodium Potassium Chloride Carbon Dioxide Anion Gap BUN Creatinine Creat Clearance w eGFR POC Glucometer Random Glucose Hemoglobin A1c % 7.6 H Calcium Phosphorus Magnesium Total Bilirubin AST ALT Alkaline Phosphatase Total Protein Albumin Ur Random Sodium Urine Creatinine Blood Type Antibody Screen Current Medications Generic Name Dose Route Start Last Admin Trade Name Freq PRN Reason Stop Dose Admin Aspirin 81 mg 06/30/18 10:00 06/30/18 09:11 Asa - PO 81 mg DAILY MIKEL Administration Atorvastatin Calcium 80 mg 06/30/18 22:00 Lipitor - PO HS MIKEL Heparin Sodium (Porcine) 1,000 unit 06/30/18 07:37 Heparin - IVPUSH PRN PRN Heparin Heparin Sodium (Porcine) 5,000 unit 06/30/18 07:37 Heparin - IVPUSH PRN PRN Heparin Sodium Chloride 1,000 mls @ 42 mls/hr 06/29/18 22:00 06/29/18 21:56 Normal Saline - IV 42 mls/hr ASDIR MIKEL Administration HEPARIN SOD,PORK IN 0.45% NACL 25,000 units in 500 mls @ 16 mls/hr 06/30/18 07 :45 06/30/18 08:21 Heparin-1/2ns 25,000 Units/500 IVPB 800 unit/hr TITR MIKEL 16 mls/hr Administration Protocol 800 UNIT/HR Insulin Aspart 1 vial 06/29/18 16:30 06/30/18 06:11 Novolog Vial Sliding Scale - SQ 2 units ACHS MIKEL Administration Protocol Lisinopril 40 mg 06/30/18 06:15 06/30/18 06:11 Prinivil PO 40 mg DAILY MIKEL Administration Magnesium Oxide 400 mg 06/30/18 10:00 06/30/18 09:11 Mag-Ox - PO 400 mg DAILY MIKEL Administration Metoprolol Succinate 100 mg 06/30/18 10:00 06/30/18 09:11 Toprol Xl - PO 100 mg DAILY MIKEL Administration Sertraline HCl 50 mg 06/30/18 10:00 06/30/18 09:11 Zoloft - PO 50 mg DAILY MIKEL Administration ASSESSMENT AND PLAN: 78 year old female with HTN, HLD, DM 2, prior CVA with residual L sided weakness , Colon Ca s/p excision, R eye blindness, history of arrythmia (unknown if Atrial Fibrillation), realized she had unsteady gait at 2am when she tried to go to the bathroom, requiring her 's help to mobilize. Also noted to have facial droop and slurring of speech by her . ECG in ED - Atrial Fibrillation, rate 83. 1. Acute CVA with Dysarthria, improving CT Head - no acute intracranial findings. MRI/MRA Brain - multiple small acute infarcts in cortex and subcortical white matter. Small plaques L posterior cerebral artery Carotid Duplex - no hemodynamically significant stenosis. Initially loaded with Aspirin and Atrovastatin dose increased to 80mg (LDL way above goal at 202, target <70). Will discontinue Aspirin and start Heparin drip given confirmation of ischemic lesions on MRI in setting of Atrial Fibrillation. Echo pending - for transition from Heparin drip to oral AC once valvular disease excluded on Echo. Neuro/Cardio/PT 2. FLORI on CKD - BUN 35/Creat 1.5 (unknown baseline) Renal US - findings suggestive of medical renal disease. IV fluids discontinued. Oral intake resumed. Need baseline Creat levels from PCP/Cardiology office. 3. History of Atrial Fibrillation, not on AC, rate appears controlled. Immediate anticoagulation with Heparin drip - initiation of oral agent pending Cardiology eval and Echo findings. 4. DM 2 - A1C 7.6. Maintain on sliding scale insulin. Glimepiride held. 5. LE Edema secondary to venous stasis versus CHF - chronic, worse over past few weeks BNP elevated at 4787. Echo requested. Normally on Lasix 40mg daily. Will possibly require Lasix diuresis once baseline Creat determined. 6. HTN - high BP - allowed for permissive HTN in first 24-36 hours tiffanie-CVA. Resumed on Metoprolol, Lisinopril. Will resume Norvasc depending on BP readings. DVT Px - on Heparin drip Visit type - Emergency Visit Emergency Visit: Yes ED Registration Date: 06/29/18 Care time: The patient presented to the Emergency Department on the above date and was hospitalized for further evaluation of their emergent condition. - New Patient This patient is new to me today: No - Critical Care Critical Care patient: No - Discharge Referral Referred to [facility] Med P.C.: No
[2018-06-30] MEDS ORDERED: ATORVASTATIN CA 80 MG TABLET (FP) PO SCH (22:00)
[2018-07-01] MEDS ORDERED: amLODIPine BESYLATE 10 MG TABLET (FP) PO SCH ×3 (06:00→22:00)
[2018-07-01] MEDS: INSULIN SLIDING SCALE (NOVOLOG) 1 VIAL SQ SCH ×3 (06:20→16:04)
[2018-07-01] MEDS: LISINOPRIL 20 MG TABLET (FP) PO SCH (06:21)
[2018-07-01] MEDS ORDERED: LISINOPRIL 20 MG TABLET (FP) PO SCH (06:30)
[2018-07-01 07:02] LABS: HEMATOCRIT 31.8 % (32.4-45.2); HEMOGLOBIN 11.3 GM/dL (10.7-15.3); MCHC 35.7 g/dl (32.0-36.0); MEAN CELL VOLUME 95.3 fl (80-96); MEAN PLT VOLUME 9.3 fl (7.5-11.1); PLATELET COUNT 251 K/MM3 (134-434); RBC 3.33 M/mm3 (3.60-5.2); WHITE BLOOD COUNT 7.5 K/mm3 (4.0-10.0)
--- NOTE | 2018-07-01 10:00 | PN ---
Progress Note, Physician Chief Complaint: Events noted Still hypertensive Sitting in chair Feels better History of Present Illness: Patient was seen and examined. Awake and alert. 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 states that she had PAF and was started on Xarelto, but unclear whether she had taken it - Current Medication List Current Medications: Active Medications Amlodipine Besylate (Norvasc -) 10 mg PO HS [facility] Atorvastatin Calcium (Lipitor -) 80 mg PO HS [facility] Last Admin: 06/30/18 21:05 Dose: 80 mg Heparin Sodium (Porcine) (Heparin -) 1,000 unit IVPUSH PRN PRN PRN Reason: Heparin Heparin Sodium (Porcine) (Heparin -) 5,000 unit IVPUSH PRN PRN PRN Reason: Heparin HEPARIN SOD,PORK IN 0.45% NACL (Heparin-1/2ns 25,000 Units/500) 25,000 units in 500 mls @ 16 mls/hr IVPB TITR [facility]; Protocol Last Titration: 06/30/18 17:03 Dose: 800 unit/hr, 16 mls/hr Insulin Aspart (Novolog Vial Sliding Scale -) 1 vial SQ ACHS [facility]; Protocol Last Admin: 07/01/18 06:20 Dose: 2 units Lisinopril (Prinivil) 40 mg PO DAILY [facility] Last Admin: 07/01/18 06:25 Dose: Not Given Magnesium Oxide (Mag-Ox -) 400 mg PO DAILY [facility] Last Admin: 06/30/18 09:11 Dose: 400 mg Metoprolol Succinate (Toprol Xl -) 100 mg PO DAILY [facility] Last Admin: 07/01/18 06:25 Dose: Not Given Sertraline HCl (Zoloft -) 50 mg PO DAILY [facility] Last Admin: 06/30/18 09:11 Dose: 50 mg - Objective Vital Signs: Vital Signs Temperature 98.4 F 07/01/18 06:00 Pulse Rate 77 07/01/18 06:00 Respiratory Rate 20 07/01/18 06:00 Blood Pressure 203/98 H 07/01/18 06:00 O2 Sat by Pulse Oximetry (%) 94 L 06/30/18 20:19 Eyes: Yes: PERRL HENT: Yes: Atraumatic Neck: Yes: Supple Cardiovascular: Yes: Pulse Irregular, Murmur (JOSE G), S1, S2 Respiratory: Yes: Diminished Gastrointestinal: Yes: Normal Bowel Sounds, Soft. No: Tenderness Edema: Yes Edema: LLE: Trace, RLE: Trace Additional Findings/Remarks: - Review of Systems Constitutional: denies: Chills, Fever Cardiovascular: denies: Chest Pain, Palpitations, Shortness of Breath Respiratory: denies: Cough, Hemoptysis, Orthopnea, PND, SOB, SOB on Exertion, Wheezing Gastrointestinal: denies: Abdominal Pain, Constipation, Diarrhea, Melena, Nausea , Rectal Bleeding, Vomiting Musculoskeletal: denies: Back Pain Neurological: denies: Dizziness, Headache, Seizure, Syncope Labs: CBC, BMP 07/01/18 06:00 06/30/18 06:30 INR, PTT INR 0.94 (0.83-1.09) 06/30/18 06:30 Problem List - Problems (1) Diabetes mellitus Code(s): E11.9 - TYPE 2 DIABETES MELLITUS WITHOUT COMPLICATIONS (2) Atrial fibrillation Code(s): I48.91 - UNSPECIFIED ATRIAL FIBRILLATION Qualifiers: Atrial fibrillation type: paroxysmal Qualified Code(s): I48.0 - Paroxysmal atrial fibrillation (3) CVA (cerebral vascular accident) Code(s): I63.9 - CEREBRAL INFARCTION, UNSPECIFIED (4) Dyslipidemia Code(s): E78.5 - HYPERLIPIDEMIA, UNSPECIFIED (5) Hypertension Code(s): I10 - ESSENTIAL (PRIMARY) HYPERTENSION Qualifiers: Hypertension type: essential hypertension Qualified Code(s): I10 - Essential (primary) hypertension (6) Aortic valve stenosis Code(s): I35.0 - NONRHEUMATIC AORTIC (VALVE) STENOSIS (7) Mitral valve regurgitation Code(s): I34.0 - NONRHEUMATIC MITRAL (VALVE) INSUFFICIENCY (8) Tricuspid valve regurgitation Code(s): I07.1 - RHEUMATIC TRICUSPID INSUFFICIENCY (9) Pulmonary HTN Code(s): I27.20 - PULMONARY HYPERTENSION, UNSPECIFIED (10) Diastolic dysfunction Code(s): I51.89 - OTHER ILL-DEFINED HEART DISEASES Assessment/Plan 1. Clinical presentation c/w CVA likely an embolic source due to AF 2. AF ? new onset with variable HR ([id number] score of 8) currently on Heparin drip 3. HTN 4. Hypercholesterolemia 5. Type 2 DM 6. Moderate 7. Mitral valve and tricuspid valve regurgitation 8. Pulmonary HTN and diastolic dysfunction PLAN: 1. Change Toprol to Labetalol and uptitrate. Previously was on Clonidine 0.2 mg BID according to outpatient medical record 2. Continue Prinivil and Amlodipine for added blood pressure control 3. Statin therapy 4. Continue Heparin drip. Start DOAC such as Eliquis 2.5 mg BID (age>80, Cr>1.5) 5. Echocardiography to assess LV/RV and valvular function 6. Check prior records from the office Further plans are to follow Zurdo Ackerman MD
[2018-07-01] MEDS ORDERED: LABETALOL HCL 200 MG TABLET (FP) PO SCH (10:15)
--- NOTE | 2018-07-01 10:50 | CONSULT ---
Admitting History and Physical - Primary Care Physician PCP: Jorge Nelson - Admission History of Present Illness: Patient is an 78 year old Greek female with underlying history of HTN, hypercholesterolemia, history of colon CA s/p resection, unknown regarding history of AF, type 2 DM who presents with slurred speech and weakness having difficulty standing and ambulating. MRI-multiple infarcts WM,right frontal/parietal/temporal,left cerebellar,r thalamus. 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 Cardiovascular: Yes: HTN, Hyperlipdemia Gastrointestinal: Yes: Cancer (Colon) Endocrine: Yes: Diabetes Mellitus - Past Surgical History Past Surgical History: Yes: Colectomy - Smoking History Smoking history: Never smoked Have you smoked in the past 12 months: No - Alcohol/Substance Use Hx Alcohol Use: No History of Substance Use: reports: None History - Admission Reason For Visit: HTN, CVA - Diagnostics X-ray: Report Reviewed CT Scan: Report Reviewed MRI: Report Reviewed (MRI-multiple infarcts WM,right frontal/parietal/temporal, left cerebellar,r thalamus.) - General Mental Status: Alert and Oriented, Awake and Alert, Able to Follow Commands Attention: Intact Ability to Follow Directions: Excellent Head/Neck Control: WFL - Hearing Hearing: Functional Hearing: Normal Speech Evaluation - Communication Primary Language: Greek Communication: Yes: Within Normal Limits - Speech Production Able to Make Needs Known: Yes: WNL Intelligibility: Yes: WNL, Mildly Impaired (slight per her . Good intelligibilty) - Speech Characteristics Voice Loudness: Normal Voice Pitch: Yes: Normal Voice Phonatory-based Quality: Yes: Normal Speech Pattern: Normal Speech Clarity: < 100% Nasal Resonance: Normal Articulation: Yes: Imprecise (very slight) - Language/Auditory Comprehension Follows: Yes: 2 Stage Simple Commands Observation: Able to respond to yes/no queries: Yes, Yes/No Confusion: No, Comprehends Conversational Speech: Yes - Language/Verbal Expression Able to Respond to Simple Queries: Yes: WNL Able to Communicate Wants and Needs: Yes: WNL Functional Communication Status: Yes: WNL - 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: Yes: WNL Short Term Memory: Yes: WNL - Swallow Evaluation/Bedside Assessment Current Nutritional Intake: Regular, Thin Liquids Oral Secretions: Yes: WFL Dentition: Yes: Adequate Facial Symmetry at Rest: Facial Droop Right (mild) Facial Symmetry on Retraction: Symmetrical, Facial Droop Right (slight) Against Resistance Opening: Normal Against Resistance Closing: Normal Pucker Lips: Normal Smile: Normal Lingual Movement: Normal, Symmetric Lingual Speed of Movement: Normal Lingual Movement Strgth Against Opposition: Normal Lingual Movement Characteristics: Normal Velopharyngeal Movement: Normal Laryngeal Elevation: WFL Laryngeal Movement: Able to Palpate Rate of Intake: WFL Bolus Size: WFL Labial Seal: WFL Chewing: WFL Oral Prep Time: WFL A-P Transit: WFL Pocketing: None Coughing/Throat Clear: No Change in Voice: No Recommendations - Speech Evaluation, Impression/Plan Impression: Slight dysarthria with articulatory imprecision.Mild Right facial at rest. -MRI-multiple infarcts WM,right frontal/parietal/temporal,left cerebellar,r thalamus. Swallowing,cognition, language intact. - Dysphagia Impressions/Plan Swallowing Skills: [facility] Dysphagia Impressions: No Impairment *Silent aspiration: cannot be R/O at bedside Dysphagia Treatment Plan: OOB for meals, OOB for 1 h. after meals Recommendations: Other (oral motor exercises given for self practice) - Recommendations Diet Consistency: Regular Medication Administration: Whole with water Liquids: Thin Liquids
[2018-07-01] MEDS ORDERED: APIXABAN 2.5 MG TABLET PO SCH (11:00)
[2018-07-01] MEDS: MAGNESIUM OXIDE 400 MG TABLET (FP) PO SCH (11:07)
[2018-07-01] MEDS: SERTRALINE HCL 50 MG TABLET (FP) PO SCH (11:08)
[2018-07-01 11:14] VITALS: TEMP 98.1
--- NOTE | 2018-07-01 12:54 | PN ---
Teaching Attending Note Name of Resident: Roberto Carlos Cevallos ATTENDING PHYSICIAN STATEMENT I saw and evaluated the patient. I reviewed the resident's note and discussed the case with the resident. I agree with the resident's findings and plan as documented. SUBJECTIVE: Dysarthria significantly improved. No headache/visual disturbance/ new focal limb numbness or weakness. No nausea/vomiting. OBJECTIVE: Afebrile, Hypertensive. Last Vital Signs Temp Pulse Resp BP Pulse Ox 98.1 F 84 16 147/91 95 07/01/18 11:14 07/01/18 12:33 07/01/18 11:14 07/01/18 12:33 07/01/18 09:00 Heart - S1, S2, SM, irregular Lungs - clear to auscultation. Abdomen - Soft, non-tender. Bowel Sounds normal. Extremities - bilateral LE edema. No calf tenderness Neuro - AAO x 3. Mild decrease in power LUE versus RUE. L facial droop improving. Dysarthria improved Laboratory Results - last 24 hr 06/30/18 06/30/18 06/30/18 15:29 17:01 20:59 WBC RBC Hgb Hct MCV MCH MCHC RDW Plt Count MPV PTT (Actin FS) 72.8 H POC Glucometer 154 179 07/01/18 07/01/18 07/01/18 06:00 06:00 06:15 WBC 7.5 RBC 3.33 L Hgb 11.3 Hct 31.8 L MCV 95.3 MCH 34.0 H MCHC 35.7 RDW 15.0 Plt Count 251 MPV 9.3 PTT (Actin FS) 86.9 H POC Glucometer 152 07/01/18 11:12 WBC RBC Hgb Hct MCV MCH MCHC RDW Plt Count MPV PTT (Actin FS) POC Glucometer 215 Current Medications Generic Name Dose Route Start Last Admin Trade Name Freq PRN Reason Stop Dose Admin Amlodipine Besylate 10 mg 07/01/18 12:00 Norvasc - PO DAILY [facility]KEL Apixaban 2.5 mg 07/01/18 11:00 07/01/18 11:07 Eliquis - PO 2.5 mg BID MIKEL Administration Atorvastatin Calcium 80 mg 06/30/18 22:00 06/30/18 21:05 Lipitor - PO 80 mg HS [facility]KEL Administration Heparin Sodium (Porcine) 1,000 unit 06/30/18 07:37 Heparin - IVPUSH PRN PRN Heparin Heparin Sodium (Porcine) 5,000 unit 06/30/18 07:37 Heparin - IVPUSH PRN PRN Heparin HEPARIN SOD,PORK IN 0.45% NACL 25,000 units in 500 mls @ 16 mls/hr 06/30/18 07 :45 06/30/18 17:03 Heparin-1/2ns 25,000 Units/500 IVPB 800 unit/hr TITR MIKEL 16 mls/hr Titration Protocol 800 UNIT/HR Insulin Aspart 1 vial 06/29/18 16:30 07/01/18 11:33 Novolog Vial Sliding Scale - SQ 4 units ACHS MIKEL Administration Protocol Labetalol HCl 200 mg 07/01/18 10:15 07/01/18 10:32 Normodyne - PO 200 mg BID MIKEL Administration Lisinopril 40 mg 07/01/18 06:30 07/01/18 06:25 Prinivil PO Not Given DAILY MIKEL Magnesium Oxide 400 mg 06/30/18 10:00 07/01/18 11:07 Mag-Ox - PO 400 mg DAILY [facility] Administration Sertraline HCl 50 mg 06/30/18 10:00 07/01/18 11:08 Zoloft - PO 50 mg DAILY [facility] Administration ASSESSMENT AND PLAN: 78 year old female with HTN, HLD, DM 2, prior CVA with residual L sided weakness , Colon Ca s/p excision, R eye blindness, history of arrythmia (unknown if Atrial Fibrillation), realized she had unsteady gait at 2am when she tried to go to the bathroom, requiring her 's help to mobilize. Also noted to have facial droop and slurring of speech by her . ECG in ED - Atrial Fibrillation, rate 83. 1. Acute CVA with Dysarthria, significantly improved CT Head - no acute intracranial findings. MRI/MRA Brain - multiple small acute infarcts in cortex and subcortical white matter. Small plaques L posterior cerebral artery Carotid Duplex - no hemodynamically significant stenosis. Initially loaded with Aspirin and Atrovastatin dose increased to 80mg (LDL way above goal at 202, target <70). Aspirin discontinued in favor of Eliquis. Seen by Cardio/Neuro/Speech/PT Medically stable for discharge pending normal Echo result. 2. FLORI on CKD - BUN 35/Creat 1.5 (unknown baseline) Renal US - findings suggestive of medical renal disease. IV fluids discontinued. Oral intake resumed. Baseline Creat levels from PCP/Cardiology office requested. 3. History of Atrial Fibrillation, not on AC, rate appears controlled. Will transition from Heparin drip to oral Eliquis prior to discharge. 4. DM 2 - A1C 7.6. Maintained on sliding scale insulin. Will resume Glimepiride on discharge. 5. LE Edema secondary to venous stasis versus CHF - chronic, worse over past few weeks BNP elevated at 4787. Echo pending Normally on Lasix 40mg daily. 6. HTN - high BP - allowed for permissive HTN in first 24-36 hours tiffanie-CVA. Resumed on Lisinopril, Norvac; Metoprolol transitioned to Labetolol. Medically Stable for discharge with Neuro and Cardio follow ups pending Echo and BP trend.
--- NOTE | 2018-07-01 15:34 | ECHO ---
Name: KOBY, RAN H Exam:Adult Echocardiogram Study Date: 07/01/2018 08:29 AM Age: 78 yrs Reason For Study: CVA Height: 62 in Weight: 140 lb BSA: 1.6 m2 MMode/2D Measurements & Calculations IVSd: 1.3 cm Ao root diam: 2.3 cm LVIDd: 4.5 cm LA dimension: 4.0 cm LVIDs: 2.5 cm LVPWd: 1.0 cm EDV(Teich): 91.4 ml LVOT diam: 2.0 cm ESV(Teich): 23.3 ml LAV (MOD-bp): 78.6 ml Doppler Measurements & Calculations MV E max camilo: 144.0 cm/sec Ao V2 max: 270.5 cm/sec MV dec time: 0.13 sec Ao max P.3 mmHg Ao V2 mean: 186.0 cm/sec Ao mean P.0 mmHg Ao V2 VTI: 60.3 cm HARVEY(I,D): 0.76 cm2 AI P1/2t: 448.5 msec HARVEY(V,D): 0.88 cm2 AI max camilo: 534.4 cm/sec LV V1 max P.4 mmHg AI max P.2 mmHg LV V1 mean P.4 mmHg AI dec slope: 349.0 cm/sec2 LV V1 max: 76.5 cm/sec LV V1 mean: 55.1 cm/sec LV V1 VTI: 14.8 cm MR max camilo: 601.3 cm/sec SV(LVOT): 46.0 ml MR max P.1 mmHg TR max camilo: 335.7 cm/sec PA V2 max: 109.9 cm/sec TR max P.4 mmHg PA max P.8 mmHg Med Peak E' Camilo: 6.6 cm/sec PI Vmax: 139.8 cm/sec Med E/e': 21.7 Lat Peak E' Camilo: 7.8 cm/sec Lat E/e': 18.4 Procedure A complete two-dimensional transthoracic echocardiogram was performed (2D, M-mode, Doppler and color flow Doppler). Left Ventricle The left ventricle is normal in size. There is mild concentric left ventricular hypertrophy. Left shey tricular systolic function is normal. Ejection Fraction = 65-70%. No regional wall motion abnormalities noted. Right Ventricle The right ventricle is normal size. The right ventricular systolic function is normal. Atria The left atrium is mildly dilated. Right atrial size is normal. Mitral Valve There is moderate mitral annular calcification. There is mild to moderate mitral regurgitation. Tricuspid Valve The tricuspid valve is normal in structure and function. There is mild to moderate tricuspid regurgit ation. Pulmonary artery systolic pressure is at least 58 mmHg assuming RA pressure of 3 mmHg. Aortic Valve There is mild aortic valve thickening. Mild to moderate valvular aortic stenosis. The calculated aort ic valve area using the continuity equation is 0.8 cm2. Aortic mean pressure gradient= 16 mmHg. Dimensionless index (DI) is estimated 0.27. Mild aortic regurgitation. Pulmonic Valve The pulmonic valve is not well visualized. Trace to mild pulmonic valvular regurgitation. Great Vessels The aortic root is normal size. Pericardium/Pleura Small pericardial effusion (<1cm). Interpretation Summary The left ventricle is normal in size. There is mild concentric left ventricular hypertrophy. Left ventricular systolic function is normal. No regional wall motion abnormalities noted. Ejection Fraction = 65-70%. The right ventricular systolic function is normal. The left atrium is mildly dilated. Right atrial size is normal. There is moderate mitral annular calcification. There is mild to moderate mitral regurgitation. There is mild to moderate tricuspid regurgitation. Pulmonary artery systolic pressure is at least 58 mmHg assuming RA pressure of 3 mmHg There is mild aortic valve thickening. The calculated aortic valve area using the continuity equation is 0.8 cm2. Aortic mean pressure gradient= 16 mmHg Dimensionless index (DI) is estimated 0.27 Mild aortic regurgitation. Trace to mild pulmonic valvular regurgitation. Small pericardial effusion (<1cm) Previous study is not available for comparison Zurdo Ackerman MD 07/01/2018 03:34 PM
[2018-07-01 15:48] VITALS: BP 158/84; PULSE 80
[2018-07-01] MEDS: HEPARIN SOD,PORK IN 0.45% NACL 25,000 UNITS/500 ML INFUS.BAG IVPB SCH (15:49)
--- NOTE | 2018-07-01 16:14 | PN ---
Physical Exam: SUBJECTIVE: Patient seen and examined at bedside. no acute events overnight. Dysarthria significantly improved. No headache/visual disturbance/new focal limb numbness or weakness. No nausea/vomiting. no cp, sob OBJECTIVE: Vital Signs Period Temp Pulse Resp BP Sys/Rasheed Pulse Ox Last 24 Hr 97.7 F-98.8 F 77-88 16-20 145-203/84-111 94-95 GENERAL: Awake, alert, and fully oriented, in no acute distress, lying in bed. HEAD: Normal with no signs of trauma. EYES: Left pupil round and reactive to light, extraocular movements intact, sclera anicteric, conjunctiva clear. No lid lag. Right eye blind. EARS, NOSE, THROAT: Oropharynx clear without exudates. Moist mucous membranes. NECK: Normal range of motion, supple without lymphadenopathy, JVD, or masses. LUNGS: Breath sounds equal, clear to auscultation bilaterally. No wheezes, and no crackles. No accessory muscle use. HEART: Irregular rate and rhythm, normal S1 and S2, systolic murmur over right, left sternal border, radiating to apex and left carotid. ABDOMEN: Soft, nontender, not distended, normoactive bowel sounds, no guarding, no rebound, no masses. MUSCULOSKELETAL: Normal range of motion at all joints. No bony deformities or tenderness. UPPER EXTREMITIES: No peripheral edema. LOWER EXTREMITIES: 2+ pulses, 2+ peripheral edema. NEUROLOGICAL: Facial droop on L side, improving, speech improving, motor in upper extremities: LUE 4-5/5, RUE 5/5, lower extremities 5/5, sensation decreased on left side, improving, gait not observed. Follows commands. PSYCHIATRIC: Cooperative. Good eye contact. Appropriate mood and affect. SKIN: Warm, dry, normal turgor, no rashes. Laboratory Results - last 24 hr 06/30/18 06/30/18 06/30/18 15:29 17:01 20:59 WBC RBC Hgb Hct MCV MCH MCHC RDW Plt Count MPV PTT (Actin FS) 72.8 H POC Glucometer 154 179 07/01/18 07/01/18 07/01/18 06:00 06:00 06:15 WBC 7.5 RBC 3.33 L Hgb 11.3 Hct 31.8 L MCV 95.3 MCH 34.0 H MCHC 35.7 RDW 15.0 Plt Count 251 MPV 9.3 PTT (Actin FS) 86.9 H POC Glucometer 152 07/01/18 07/01/18 11:12 15:56 WBC RBC Hgb Hct MCV MCH MCHC RDW Plt Count MPV PTT (Actin FS) POC Glucometer 215 193 Active Medications Generic Name Dose Route Start Last Admin Trade Name Freq PRN Reason Stop Dose Admin Amlodipine Besylate 10 mg 07/01/18 12:00 07/01/18 15:50 Norvasc - PO Not Given DAILY MIKEL Apixaban 2.5 mg 07/01/18 11:00 07/01/18 11:07 Eliquis - PO 2.5 mg BID MIKEL Administration Atorvastatin Calcium 80 mg 06/30/18 22:00 06/30/18 21:05 Lipitor - PO 80 mg HS MIKEL Administration Heparin Sodium (Porcine) 1,000 unit 06/30/18 07:37 Heparin - IVPUSH PRN PRN Heparin Heparin Sodium (Porcine) 5,000 unit 06/30/18 07:37 Heparin - IVPUSH PRN PRN Heparin HEPARIN SOD,PORK IN 0.45% NACL 25,000 units in 500 mls @ 16 mls/hr 06/30/18 07 :45 07/01/18 15:49 Heparin-1/2ns 25,000 Units/500 IVPB Not Given TITR MIKEL Protocol 800 UNIT/HR Insulin Aspart 1 vial 06/29/18 16:30 07/01/18 16:04 Novolog Vial Sliding Scale - SQ 2 units ACHS MIKEL Administration Protocol Labetalol HCl 200 mg 07/01/18 10:15 07/01/18 10:32 Normodyne - PO 200 mg BID MIKEL Administration Lisinopril 40 mg 07/01/18 06:30 07/01/18 06:25 Prinivil PO Not Given DAILY MIKEL Magnesium Oxide 400 mg 06/30/18 10:00 07/01/18 11:07 Mag-Ox - PO 400 mg DAILY MIKEL Administration Sertraline HCl 50 mg 06/30/18 10:00 07/01/18 11:08 Zoloft - PO 50 mg DAILY MIKEL Administration ECHO Interpretation Summary The left ventricle is normal in size. There is mild concentric left ventricular hypertrophy. Left ventricular systolic function is normal. No regional wall motion abnormalities noted. Ejection Fraction = 65-70%. The right ventricular systolic function is normal. The left atrium is mildly dilated. Right atrial size is normal. There is moderate mitral annular calcification. There is mild to moderate mitral regurgitation. There is mild to moderate tricuspid regurgitation. Pulmonary artery systolic pressure is at least 58 mmHg assuming RA pressure of 3 mmHg There is mild aortic valve thickening. The calculated aortic valve area using the continuity equation is 0.8 cm2. Aortic mean pressure gradient= 16 mmHg Dimensionless index (DI) is estimated 0.27 Mild aortic regurgitation. Trace to mild pulmonic valvular regurgitation. Small pericardial effusion (<1cm) Previous study is not available for comparison ASSESSMENT/PLAN: 78 yo F PMH HTN, HLD, DM 2, prior CVA with residual L sided weakness, Colon Ca s /p excision, R eye blindness, hx of arrythmia (unknown if Atrial Fibrillation not on AC), p/w unsteady gait when she tried to go to the bathroom, requiring her 's help to mobilize and facial droop and slurring of speech. ECG in ED - Atrial Fibrillation, rate 83. Admitted for CVA and found w/ HTN urgency (200s). CT Head - no acute intracranial findings. Echo reviewed above. Carotid Duplex - no hemodynamically significant stenosis. MRI/MRA Brain - multiple small acute infarcts in cortex and subcortical white matter. Small plaques L posterior cerebral artery. Tx low dose Eliquis 2.5 mg BID (age>80, Cr>1.5) and Atrovastatin 80mg (LDL way above goal at 202, target <70). Seen by Cardio/Neuro/Speech/PT. A1C 7.6. BP was cont w / home Lisinopril, Norvac Medically stable for discharge pending normal Echo result. 2. FLORI on CKD - BUN 35/Creat 1.5 (unknown baseline) Renal US - findings suggestive of medical renal disease. IV fluids discontinued. Oral intake resumed. Baseline Creat levels from PCP/Cardiology office requested. 4. DM 2 - . Maintained on sliding scale insulin. Will resume Glimepiride on discharge. 5. LE Edema secondary to venous stasis versus CHF - chronic, worse over past few weeks BNP elevated at 4787. Echo pending Normally on Lasix 40mg daily. 6. HTN - high BP - allowed for permissive HTN in first 24-36 hours tiffanie-CVA. Resumed on ; Metoprolol transitioned to Labetolol. Medically Stable for discharge with Neuro and Cardio follow ups pending Echo and BP trend.
--- NOTE | 2018-07-01 16:29 | DS ---
Physical Exam: SUBJECTIVE: Patient seen and examined at bedside. no acute events overnight. Dysarthria significantly improved. No headache/visual disturbance/new focal limb numbness or weakness. No nausea/vomiting. no cp, sob OBJECTIVE: Vital Signs Period Temp Pulse Resp BP Sys/Rasheed Pulse Ox Last 24 Hr 97.7 F-98.8 F 77-88 16-20 145-203/84-111 94-95 PHYSICAL EXAM GENERAL: Awake, alert, and fully oriented, in no acute distress, lying in bed. HEAD: Normal with no signs of trauma. EYES: Left pupil round and reactive to light, extraocular movements intact, sclera anicteric, conjunctiva clear. No lid lag. Right eye blind. EARS, NOSE, THROAT: Oropharynx clear without exudates. Moist mucous membranes. NECK: Normal range of motion, supple without lymphadenopathy, JVD, or masses. LUNGS: Breath sounds equal, clear to auscultation bilaterally. No wheezes, and no crackles. No accessory muscle use. HEART: Irregular rate and rhythm, normal S1 and S2, systolic murmur over right, left sternal border, radiating to apex and left carotid. ABDOMEN: Soft, nontender, not distended, normoactive bowel sounds, no guarding, no rebound, no masses. MUSCULOSKELETAL: Normal range of motion at all joints. No bony deformities or tenderness. UPPER EXTREMITIES: No peripheral edema. LOWER EXTREMITIES: 2+ pulses, 2+ peripheral edema. NEUROLOGICAL: Facial droop on L side, improving, speech improving, motor in upper extremities: LUE 4-5/5, RUE 5/5, lower extremities 5/5, sensation decreased on left side, improving, gait not observed. Follows commands. PSYCHIATRIC: Cooperative. Good eye contact. Appropriate mood and affect. SKIN: Warm, dry, normal turgor, no rashes. LABS Laboratory Results - last 24 hr 06/30/18 06/30/18 06/30/18 15:29 17:01 20:59 WBC RBC Hgb Hct MCV MCH MCHC RDW Plt Count MPV PTT (Actin FS) 72.8 H POC Glucometer 154 179 07/01/18 07/01/18 07/01/18 06:00 06:00 06:15 WBC 7.5 RBC 3.33 L Hgb 11.3 Hct 31.8 L MCV 95.3 MCH 34.0 H MCHC 35.7 RDW 15.0 Plt Count 251 MPV 9.3 PTT (Actin FS) 86.9 H POC Glucometer 152 07/01/18 07/01/18 11:12 15:56 WBC RBC Hgb Hct MCV MCH MCHC RDW Plt Count MPV PTT (Actin FS) POC Glucometer 215 193 ECHO Interpretation Summary The left ventricle is normal in size. There is mild concentric left ventricular hypertrophy. Left ventricular systolic function is normal. No regional wall motion abnormalities noted. Ejection Fraction = 65-70%. The right ventricular systolic function is normal. The left atrium is mildly dilated. Right atrial size is normal. There is moderate mitral annular calcification. There is mild to moderate mitral regurgitation. There is mild to moderate tricuspid regurgitation. Pulmonary artery systolic pressure is at least 58 mmHg assuming RA pressure of 3 mmHg There is mild aortic valve thickening. The calculated aortic valve area using the continuity equation is 0.8 cm2. Aortic mean pressure gradient= 16 mmHg Dimensionless index (DI) is estimated 0.27 Mild aortic regurgitation. Trace to mild pulmonic valvular regurgitation. Small pericardial effusion (<1cm) Previous study is not available for comparison HOSPITAL COURSE: Date of Admission:06/29/18 Date of Discharge: 07/01/18 78 yo F PMH HTN, HLD, DM 2, prior CVA with residual L sided weakness, Colon Ca s /p excision, R eye blindness, hx of arrythmia (unknown if Atrial Fibrillation not on AC), diastolic CHF, p/w unsteady gait when she tried to go to the bathroom, requiring her 's help to mobilize and facial droop and slurring of speech. ECG in ED - Atrial Fibrillation, rate 83. Admitted for CVA and found w/ HTN urgency (200s). CT Head - no acute intracranial findings. Echo reviewed above. Carotid Duplex - no hemodynamically significant stenosis. MRI/MRA Brain - multiple small acute infarcts in cortex and subcortical white matter. Small plaques L posterior cerebral artery. Tx w/ low dose Eliquis 2.5 mg BID (age>80, Cr>1.5) and home dose lipitor increased from 10mg to 80mg (LDL way above goal at 202, target <70). Seen by Cardio/Neuro/ Speech/PT. A1C 7.6. BP was controlled w/ home Lisinopril and Norvac and home Metoprolol was transitioned to Labetolol per cardio recs. #FLORI on CKD? - BUN 35/Creat 1.5 (unknown baseline) Renal US - findings suggestive of medical renal disease. PO hydration encouraged Baseline Creat levels from PCP/Cardiology office requested. #chronic diastolic CHF - Echo reviewed above BNP elevated at 4787. c/w home Lasix 40mg daily limit salt and fluid intake and outpt cardio f/u Pt is Medically Stable for discharge with Neuro and Cardio follow ups Minutes to complete discharge: 38 Discharge Summary Reason For Visit: HTN, CVA Current Active Problems Aortic valve stenosis (Acute) Atrial fibrillation (Acute) CVA (cerebral vascular accident) (Acute) Diabetes mellitus (Acute) Diastolic dysfunction (Acute) Dyslipidemia (Acute) Hypertension (Acute) Mitral valve regurgitation (Acute) Pulmonary HTN (Acute) Tricuspid valve regurgitation (Acute) Condition: Stable - Instructions Diet, Activity, Other Instructions: you came in because you were unstable on your feet and your blood pressure was very high. Your MRI showed signs of a stroke. we gave you meds for blood pressure and blood thinner meds and cholesterol meds to help prevent further strokes. Ultrasound of your neck was normal Ultrasound of your heart showed no clots Please resume your home meds NEW/CHANGES IN MEDICATIONS: We have switched your blood pressure medicine from metoprolol to Labetolol 200mg twice a day for better blood pressure control. Please stop taking metoprolol. We have switched your blood blood thinner medicine from aspirin and celecoxib to eliquis, 2.5mg twice a day, in order to help prevent blood clots/strokes to the brain. 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 Your blood pressure goal should be less than 140/90 Please eat a low salt diet and please avoid fatty and fried foods in order to help lower your blood pressure and cholesterol please have your primary care physician monitor your kidney function as while you were in the hospital we noticed your creatinine level was a little high Please follow up with your primary care physician within 1 week Please follow up with Neurologist Dr. Addison within 1 week Please follow up with Blanket Winder [employer] Dr. Ackerman within 1 week If you experience any more instability in your walk, or dizziness, limb weakness , decreased sensation, numbness, tingling, chest pain, shortness of breath, nausea, vomit, please call 911 or go to the ER Referrals: Arcenio Addison MD [Staff Physician] - 1 Week Zurdo Ackerman MD [Staff Physician] - 1 Week Disposition: HOME - Home Medications Comprehensive Discharge Medication List: Ambulatory Orders Amlodipine Besylate 10 mg PO DAILY 06/29/18 Furosemide [Lasix -] 40 mg PO DAILY 06/29/18 Glimepiride 1 mg PO DAILY 06/29/18 Lisinopril [Prinivil -] 40 mg PO DAILY 06/29/18 Loratadine [Claritin -] 10 mg PO DAILY 06/29/18 Magnesium Oxide [Mag-Oxide] 400 mg PO DAILY 06/29/18 Sertraline HCl [Zoloft -] 50 mg PO DAILY 06/29/18 Apixaban [Eliquis -] 2.5 mg PO BID 30 Days #60 tablet 07/01/18 Atorvastatin Ca [Lipitor] 80 mg PO HS 30 Days #30 tablet 07/01/18 Labetalol HCl [Normodyne -] 200 mg PO BID 30 Days #60 tablet 07/01/18 Meclizine HCl 25 mg PO DAILY 07/01/18 Montelukast Sodium [Singulair] 10 mg PO DAILY 07/01/18 Propylene Glycol/Peg 400/Pf [Systane Ultra 0.4-0.3% Eye Drp] 1 drop OU BID 07/01 Umeclidinium [place] [Incruse Ellipta] 62.5 mcg IN DAILY 07/01/18 This patient is new to me today: Yes Date on this admission: 07/01/18 Emergency Visit: Yes ED Registration Date: 06/29/18 Care time: The patient presented to the Emergency Department on the above date and was hospitalized for further evaluation of their emergent condition. Critical Care patient: No - Discharge Referral [facility]erred to [facility] Med P.C.: No
--- NOTE | 2018-07-01 17:14 | PN ---
Progress Note (short form) - Note Progress Note: 78 Year old female , yakut speaking. Inital presentation was Slurred speech and weakness since 3 am on june She has history of Stroke with left Hemiparesis , htn,hld,colon cancer, DM olivia right eye blindness. As per new information, she was being seen by [facility] [facility] and she was diagnoed with atrial fibrillation in the past. She came to hospital with leg being weak and she fell . Patient noticed to have slurred of speech. Patient was not in tpa window and her ct head showed no acute findings. Her carotid ultrasound is normal. Dwait has mri of brain and showed right mca distributioin lacunar stroke Patient was seen with at bedside. Spoke to nursing staff , chart reviewed and patient examined. She seems to be back to baseline . NEUROLOGICAL EXAMINATION Alert follow command, she is walking and feeling much better. She is able to talk in limited maltese and she feels she is back to normal self. she is able to follow command and elizabeth to answer question and understand eomi, left sided facial paralysis, no pronator drift and no leg weakness identified sensaiton is normal bilateral ct head unremarkable carotid ultrasound is normal mri of brain showed right mca lacunar stroke Assessent/Plan 78 year old female hisotyr of DM,Colon cancer,HTN,HLD . She presented with worsenign of weakness and slurring of speech and her symptoms seems almost resolved. She is found to have acute stroke on mri of brain Plan: continue aspirin and lipitor 80 mg once a day, she is being discharged on eliquis . - agree with discharge and follow up outpatient - cardiology note appreciated -stroke education Thanking you so much Arcenio Addison MD
== END 2018-07-01 18:00 | disposition home or self-care (01) | DRG 65 ==
LOC: JER 06:38 → JERBED 09:50 → J4S 14:59
DX: I63.9 Cerebral infarction, unspecified (principal); G81.94 Hemiplegia, unspecified affecting left nondominant side; N17.9 Acute kidney failure, unspecified; I13.0 Hypertensive heart and chronic kidney disease with heart failure and stage 1 through stage 4 chronic kidney disease, or unspecified chronic kidney disease; I50.32 Chronic diastolic (congestive) heart failure; I69.322 Dysarthria following cerebral infarction; R29.703 NIHSS score 3; I10 Essential (primary) hypertension; E78.5 Hyperlipidemia, unspecified; Z85.038 Personal history of other malignant neoplasm of large intestine; E11.9 Type 2 diabetes mellitus without complications; I48.0 Paroxysmal atrial fibrillation; H54.40 Blindness, one eye, unspecified eye; I27.20 Pulmonary hypertension, unspecified; I08.3 Combined rheumatic disorders of mitral, aortic and tricuspid valves; E11.22 Type 2 diabetes mellitus with diabetic chronic kidney disease; N18.9 Chronic kidney disease, unspecified
CPT/HCPCS: 36415; 70450-TC; 70544-TC; 70551-TC; 71045-TC-FY; 76775-TC; 80053; 81003; 81015; 82465; 82550; 82570; 82962; 83036; 83718; 83721; 83735; 83880; 84100; 84300; 84478; 84484; 85025; 85027; 85610; 85730; 86850; 86900; 86901; 93005; 93010; 93306-TC; 93880-TC; 97116-GP; 97161-GP; 99285-25; J1644; J7030